=== PATIENT | female | born 1985 ===

== ENCOUNTER 2017-10-09 03:33 | Observation (INO) | payer MEDICAID ==
[2017-10-09 03:46] VITALS: BMI 36.1
[2017-10-09] MEDS ORDERED: Sodium Chloride 0.9% 1,000 ML IV STA (03:46)
--- NOTE | 2017-10-09 04:07 | ED PDOC ---
HPI: Abdomen Time Seen by Provider: 10/09/17 03:41 Chief Complaint (Nursing): Abdominal Pain Chief Complaint (Provider): Abdominal Pain History Per: Patient History/Exam Limitations: no limitations Onset/Duration Of Symptoms: Hrs (x2) Current Symptoms Are (Timing): Still Present Pain Scale Rating Of: 9 Location Of Pain/Discomfort: RUQ, Epigastric Associated Symptoms: Nausea. denies: Fever, Vomiting, Diarrhea, Chest Pain, Urinary Symptoms Additional Complaint(s): Temitope Reeves is a 32 year old female with a past medical history of gallstones and cerebral AV malformation, who is presenting to the ER with complains of right upper quadrant abdominal pain and associated epigastric pain and nausea, onset 2 hours ago. Patient reports that she was diagnosed with gallstones 1 month ago and had a similar episode in the past. Tonight, she states that she ate at a [place] buffet and woke up with acute right upper quadrant pain with an intensity of 9/10. She states that initially she felt mild shortness of breath, but denies chest pain, vomiting, diarrhea, fevers, or urinary symptoms. Patient offers no other medical complaints at this time. PMD: non-H provider Past Medical History Reviewed: Historical Data, Nursing Documentation, Vital Signs Vital Signs: Last Vital Signs Temp 98.4 F 10/09/17 03:46 Pulse 81 10/09/17 03:46 Resp 17 10/09/17 03:46 BP 124/80 10/09/17 03:46 Pulse Ox 100 10/09/17 05:11 - Medical History Other PMH: Gall stones, Cerebral AV Malfunction - Surgical History Surgical History: (x2) Other surgeries: galls stones - Family History Family History: States: Unknown Family Hx - Social History Drugs: Denies - Home Medications Home Medications: Ambulatory Orders Medication Instructions Recorded No Known Home Med 10/09/17 - Allergies Allergies/Adverse Reactions: Allergies Allergy/AdvReac Type Severity Reaction Status Date / Time No Known Allergies Allergy Verified 10/09/17 03:45 Review of Systems ROS Statement: Except As Marked, All Systems Reviewed And Found Negative Constitutional: Negative for: Fever Cardiovascular: Negative for: Chest Pain Respiratory: Positive for: Shortness of Breath Gastrointestinal: Positive for: Nausea, Abdominal Pain (right upper quadrant and epigastric). Negative for: Vomiting, Diarrhea Physical Exam - Reviewed Nursing Documentation Reviewed: Yes Vital Signs Reviewed: Yes - Physical Exam Appears: Positive for: Non-toxic, No Acute Distress Head Exam: Positive for: ATRAUMATIC, NORMAL INSPECTION, NORMOCEPHALIC Skin: Positive for: Normal Color, Warm, Dry Eye Exam: Positive for: EOMI, Normal appearance, PERRL Neck: Positive for: Normal, Painless ROM, Supple Cardiovascular/Chest: Positive for: Regular Rate, Rhythm. Negative for: Murmur Respiratory: Positive for: Normal Breath Sounds. Negative for: Respiratory Distress Gastrointestinal/Abdominal: Positive for: Soft, Tenderness (mild to right upper quadrant and epigastric) Back: Positive for: Normal Inspection. Negative for: L CVA Tenderness, R CVA Tenderness, Vertebral Tenderness Extremity: Positive for: Normal ROM. Negative for: Deformity, Swelling Neurologic/Psych: Positive for: Alert, Oriented. Negative for: Motor/Sensory Deficits - Laboratory Results Result Diagrams: 10/09/17 04:09 10/09/17 04:09 - ECG O2 Sat by Pulse Oximetry: 100 (RA) Pulse Ox Interpretation: Normal Medical Decision Making Medical Decision Making: Time: 3:46 Impression: 32 year old female with right upper quadrant and epigastric pain with setting of [facility] Initial Plan: --CMP --Lipase --Urine --ED Urine Dipstick --CBC --IV Fluids --Pepcid 20 mg IV --Toradol 30 mg IV --Zofran 4 mg PO --Urinalysis --US Gallbladder 5:00 Labs reviewed and showed an elevated Lipase. An additional 2 liters of IV fluids were administered to patient. Upon provider evaluation, and discussion with Dr. Polanco, patient will be admitted and referred to Dr. Polanco for pancreatitis and cholecystitis. 5:[address] Drake, surgical consultant regarding patient, discussed case. Scribe Attestation: Documented by Blessing Perkins, acting as a scribe for Mike Cash MD. Provider Scribe Attestation: All medical record entries made by the Scribe were at my direction and personally dictated by me. I have reviewed the chart and agree that the record accurately reflects my personal performance of the history, physical exam, medical decision making, and the department course for this patient. I have also personally directed, reviewed, and agree with the discharge instructions and disposition. Disposition - Clinical Impression Clinical Impression: Pancreatitis, Cholecystitis - Patient ED Disposition Is Patient to be Admitted: Yes - Disposition Referrals: Yaya Polanco MD [Staff Provider] - Disposition: Transfer of Care Disposition Time: 05:09 Condition: FAIR Forms: [facility] (Croatian)
[2017-10-09 04:24] LABS: BASO # 0.1 K/uL (0.0-0.2); BASO % 0.7 % (0.0-2.0); EOS # 0.1 K/uL (0.0-0.7); EOS % 0.7 % (0.0-4.0); HEMOGLOBIN 10.5 g/dL (12.0-16.0); MEAN CORPUSCULAR HEMOGLOBIN 23.9 pg (27.0-31.0); MEAN CORPUSCULAR HGB CONC 32.3 g/dL (33.0-37.0); MEAN PLATELET VOLUME 8.6 fl (7.2-11.7); MONO # 0.9 K/uL (0.0-0.8); MONO % 6.7 % (0.0-10.0); NEUT # 9.4 K/uL (1.8-7.0); NEUT % 69.9 % (50.0-75.0); RBC 4.38 Mil/uL (3.80-5.20); RED CELL DISTRIBUTION WIDTH 15.9 % (11.5-14.5); WHITE BLOOD COUNT 13.4 K/uL (4.8-10.8)
[2017-10-09 04:33] LABS: ALBUMIN 4.2 g/dL (3.5-5.0); ALT/SGPT 38 U/L (9-52); AST/SGOT 34 U/L (14-36); BLOOD UREA NITROGEN 18 mg/dl (7-17); CALCIUM 9.3 mg/dL (8.4-10.2); GFR AFRICAN-AMERICAN > 60; GFR NON-AFRICAN AMERICAN > 60
[2017-10-09 04:55] LABS: LIPASE 6289 U/L (23-300)
--- NOTE | 2017-10-09 05:08 | US ---
EXAM: US Abdomen Limited, Right Upper Quadrant CLINICAL HISTORY: 32 years old, female; Pain; Abdominal pain; Acute; Additional info: Abd pain TECHNIQUE: Real-time ultrasound of the right upper quadrant with image documentation. COMPARISON: No relevant prior studies available. FINDINGS: Liver: Fatty infiltration. No mass. No intrahepatic ductal dilatation. Gallbladder: Gallstones. No wall thickening. No pericholecystic fluid. No sonographic Steward's sign. Common bile duct: No dilatation. No stones. Pancreas: Unremarkable as visualized. Right kidney: Normal echogenicity. No hydronephrosis. IMPRESSION: 1. Cholelithiasis. 2. Incidental/non-acute findings are described above.
[2017-10-09] MEDS ORDERED: Lactated Ringer's 1,000 ML IV STA ×2 (05:27)
--- NOTE | 2017-10-09 06:06 | CP.PCM.CON ---
History of Present Illness - History of Present Illness History of Present Illness: General Surgery Consult Note for Dr. Mace Reason for consult: Pancreatitis, cholelithiasis 32 year old female with a past medical history of gallstones and cerebral AV malformation presents to [facility] for complaint of epigastric pain and nausea. Patient was seen and evaluated in the ED. Patient states that pain began around 2 am. Patient reports similar episode in the past about 1 month ago. At that time, she was diagnosed with gallstones. Patient reports sudden onset which woke her up from sleep. She states that initially she felt mild shortness of breath before the nausea began. Earlier in the evening, she states that she ate at a [employer]. She rates the pain as severe intensity initially but improved after receiving pain medication. She describes the pain as constant and aching in epigastric region radiating to RUQ. Lying supine exacerbates the pain while position alleviates it. She denies recent illness or sick contact. Admits to chills. Denies fevers, chest pain, palpitations, vomiting, diarrhea, or urinary symptoms. PMD: has primary in [place] PMH: cerebral AV malformation, cholelithiasis Meds: denies Allergy: NKDA PSH: x 2 FH: HTN, DM, Prostate CA Social: denies tobacco/illicit drug use, occasional EtOH Review of Systems - Review of Systems All systems: reviewed and no additional remarkable complaints except (as per HPI ) Past Patient History - Past Social History Drugs: Denies - PSYCHIATRIC Hx Substance Use: No - SURGICAL HISTORY Hx Surgeries: No Meds Allergies/Adverse Reactions: Allergies Allergy/AdvReac Type Severity Reaction Status Date / Time No Known Allergies Allergy Verified 10/09/17 03:45 - Medications Medications: Current Medications Lactated Ringer's (Lactated Ringer's) 1,000 mls @ 1,000 mls/hr IV .Q1H STA Stop: 10/09/17 06:26 Last Admin: 10/09/17 05:51 Dose: 1,000 mls/hr Lactated Ringer's (Lactated Ringer's) 1,000 mls @ 1,000 mls/hr IV .Q1H STA Stop: 10/09/17 06:26 Physical Exam - Constitutional Appears: Well, Non-toxic, No Acute Distress - Head Exam Head Exam: ATRAUMATIC, NORMOCEPHALIC - Eye Exam Eye Exam: EOMI, Normal appearance. absent: Scleral icterus Pupil Exam: PERRL - ENT Exam ENT Exam: Mucous Membranes Moist - Neck Exam Neck exam: Negative for: Tenderness - Respiratory Exam Respiratory Exam: NORMAL BREATHING PATTERN - Cardiovascular Exam Cardiovascular Exam: REGULAR RHYTHM - GI/Abdominal Exam GI & Abdominal Exam: Normal Bowel Sounds, Soft, Tenderness (mild epigastric). absent: Distended, Firm, Guarding, Hernia, Rebound, Rigid - Extremities Exam Extremities exam: Positive for: normal capillary refill, pedal pulses present. Negative for: calf tenderness - Back Exam Back exam: absent: CVA tenderness (L), CVA tenderness (R) - Neurological Exam Neurological exam: Alert, CN II-XII Intact, Oriented x3 - Psychiatric Exam Psychiatric exam: Normal Affect, Normal Mood - Skin Skin Exam: Dry, Intact, Normal Color, Warm Results - Vital Signs Recent Vital Signs: Last Vital Signs Temp 98.4 F 10/09/17 03:46 Pulse 81 10/09/17 03:46 Resp 17 10/09/17 03:46 BP 124/80 10/09/17 03:46 Pulse Ox 100 10/09/17 05:22 - Labs Result Diagrams: 10/09/17 04:09 10/09/17 04:09 Labs: Laboratory Results - last 24 hr 10/09/17 10/09/17 04:09 04:09 WBC 13.4 H RBC 4.38 Hgb 10.5 L Hct 32.4 L MCV 74.0 L MCH 23.9 L MCHC 32.3 L RDW 15.9 H Plt Count 502 H MPV 8.6 Neut % (Auto) 69.9 Lymph % (Auto) 22.0 Sherman % (Auto) 6.7 Eos % (Auto) 0.7 Baso % (Auto) 0.7 Neut # (Auto) 9.4 H Lymph # (Auto) 3.0 Sherman # (Auto) 0.9 H Eos # (Auto) 0.1 Baso # (Auto) 0.1 Sodium 141 Potassium 3.6 Chloride 100 Carbon Dioxide 27 Anion Gap 18 BUN 18 H Creatinine 0.5 L Est GFR ( Amer) > 60 Est GFR (Non-Af Amer) > 60 Random Glucose 105 Calcium 9.3 Total Bilirubin 0.4 AST 34 ALT 38 Alkaline Phosphatase 78 Total Protein 8.3 H Albumin 4.2 Globulin 4.1 H Albumin/Globulin Ratio 1.0 Lipase 6289 H Assessment & Plan - Assessment and Plan (Free Text) Plan: 32 F with epigastric pain likely secondary to pancreatitis and biliary colic -NPO -IV fluids -Analgesics/Anti-emetics PRN -Will discuss with Dr. Rodri Drake PGY1
[2017-10-09 06:11] LABS: SQUAMOUS EPITHIAL 6 /hpf (0-5); URINE BACTERIA OCC (<OCC); URINE BILIRUBIN NEGATIVE (NEGATIVE); URINE BLOOD SMALL (NEGATIVE); URINE CLARITY CLOUDY (Clear); URINE COLOR YELLOW (YELLOW); URINE GLUCOSE (UA) NEG (Normal); URINE LEUKOCYTE ESTERASE TRACE Leu/uL (Negative); URINE PROTEIN 30 mg/dL (NEGATIVE); URINE UROBILINOGEN 0.2-1.0 mg/dL (0.2-1.0)
[2017-10-09] MEDS ORDERED: cefTRIAXone (Rocephin) 1 gm Inj ONE (06:12)
[2017-10-09] MEDS: Lactated Ringer's 1,000 ML IV SCH ×3 (06:32→22:15)
[2017-10-09] MEDS ORDERED: Morphine 4 MG/ML VIAL IVP PRN (06:48)
--- NOTE | 2017-10-09 11:59 | CP.PCM.HP ---
History of Present Illness - History of Present Illness History of Present Illness: 32 yo female with history of Gallstone and AV malformation in the brain came in because of epigastric pain, non-radiating, associated with nausea following eating in a [place] [employer]. Patient was seen at [facility] because of the same and was found to have gallstones. Patient received pain medications in the ER and was started on IV antibiotics. Presently asymptomatic since this morning. Denied fever, chills, dysuria or any urinary symptoms. Present on Admission - Present on Admission Any Indicators Present on Admission: No History of DVT/PE: No History of Uncontrolled Diabetes: No Urinary Catheter: No Decubitus Ulcer Present: No Review of Systems - Review of Systems All systems: reviewed and no additional remarkable complaints except (aside from those mentioned above, 12 point system review were negative by me) Past Patient History - Tetanus Immunizations Tetanus Immunization: Unknown - Past Medical History & Family History Past Medical History?: Yes - Past Social History Smoking Status: Never Smoked Alcohol: Occasional Drugs: Denies Home Situation {Lives}: With Family - CARDIAC Hx Cardiac Disorders: No - PULMONARY Hx Respiratory Disorders: No - NEUROLOGICAL Other/Comment: Cerebral AV Malformation diagnosed in 2012 - HEENT Hx HEENT Problems: No - RENAL Hx Chronic Kidney Disease: No - ENDOCRINE/METABOLIC Hx Endocrine Disorders: No - HEMATOLOGICAL/ONCOLOGICAL Hx Blood Disorders: No - INTEGUMENTARY Hx Dermatological Problems: No - MUSCULOSKELETAL/RHEUMATOLOGICAL Hx Musculoskeletal Disorders: No Hx Falls: No - GASTROINTESTINAL Hx Gastrointestinal Disorders: Yes Hx Gall Bladder Disease: Yes Other/Comment: Gall stones Beb 2018 - GENITOURINARY/GYNECOLOGICAL Hx Genitourinary Disorders: No - PSYCHIATRIC Hx Substance Use: No - SURGICAL HISTORY Hx Surgeries: No - ANESTHESIA Hx Anesthesia: Yes Hx Anesthesia Reactions: No Hx Malignant Hyperthermia: No Has any member of the family had a problem w/ anesthesia?: No Meds Allergies/Adverse Reactions: Allergies Allergy/AdvReac Type Severity Reaction Status Date / Time No Known Allergies Allergy Verified 10/09/17 03:45 Physical Exam - Constitutional Appears: No Acute Distress - Head Exam Head Exam: ATRAUMATIC - Eye Exam Eye Exam: absent: Scleral icterus - ENT Exam ENT Exam: Mucous Membranes Moist - Neck Exam Neck exam: Negative for: Meningismus - Respiratory Exam Respiratory Exam: absent: Rales, Rhonchi, Wheezes, Respiratory Distress - Cardiovascular Exam Cardiovascular Exam: REGULAR RHYTHM, +S1, +S2 - GI/Abdominal Exam GI & Abdominal Exam: Soft. absent: Tenderness - Rectal Exam Rectal Exam: Deferred - Extremities Exam Extremities exam: Negative for: pedal edema - Back Exam Back exam: absent: tenderness - Neurological Exam Neurological exam: Alert, Oriented x3 - Psychiatric Exam Psychiatric exam: Normal Affect - Skin Skin Exam: Dry, Intact Results - Vital Signs Recent Vital Signs: Last Vital Signs Temp 98.3 F 10/09/17 08:04 Pulse 79 10/09/17 08:04 Resp 20 10/09/17 08:04 BP 108/66 10/09/17 08:04 Pulse Ox 99 10/09/17 08:04 - Labs Result Diagrams: 10/09/17 04:09 10/09/17 04:09 Labs: Laboratory Results - last 24 hr 10/09/17 10/09/17 10/09/17 04:09 04:09 04:09 WBC 13.4 H RBC 4.38 Hgb 10.5 L Hct 32.4 L MCV 74.0 L MCH 23.9 L MCHC 32.3 L RDW 15.9 H Plt Count 502 H MPV 8.6 Neut % (Auto) 69.9 Lymph % (Auto) 22.0 Charles % (Auto) 6.7 Eos % (Auto) 0.7 Baso % (Auto) 0.7 Neut # (Auto) 9.4 H Lymph # (Auto) 3.0 Charles # (Auto) 0.9 H Eos # (Auto) 0.1 Baso # (Auto) 0.1 Sodium 141 Potassium 3.6 Chloride 100 Carbon Dioxide 27 Anion Gap 18 BUN 18 H Creatinine 0.5 L Est GFR ( Amer) > 60 Est GFR (Non-Af Amer) > 60 Random Glucose 105 Calcium 9.3 Total Bilirubin 0.4 AST 34 ALT 38 Alkaline Phosphatase 78 Total Protein 8.3 H Albumin 4.2 Globulin 4.1 H Albumin/Globulin Ratio 1.0 Lipase 6289 H Urine Color Yellow Urine Clarity Cloudy Urine pH 7.0 Ur Specific [place] 1.019 Urine Protein 30 Urine Glucose (UA) Neg Urine Ketones Negative Urine Blood Small Urine Nitrate Positive H Urine Bilirubin Negative Urine Urobilinogen 0.2-1.0 Ur Leukocyte Esterase Trace Urine RBC (Auto) 3 Urine Microscopic WBC 5 Ur Squamous Epith Cells 6 H Urine Bacteria Occ H Assessment & Plan - Assessment and Plan (Free Text) Assessment: 32 yo female with history of Gallstone and AV malformation in the brain came in because of epigastric pain, non-radiating, associated with nausea following eating in a [place] [employer]. Patient was seen at [facility] because of the same and was found to have gallstones. Patient received pain medications in the ER and was started on IV antibiotics. Presently asymptomatic since this morning. Denied fever, chills, dysuria or any urinary symptoms. 1. Acute Cholecystitis keep NPO continue IV hydration pain management with Morphine 2mg IV q 4hrs prn continue Rocephin and Flagyl surgical consult with Dr Mace appreciated patient medically cleared for surgery if surgery is warranted 2. UTI urine culture on IV Rocephin 3. Cerebral AV malformation patient is being followed by up by neurosurgery on outpatient basis
[2017-10-09] MEDS: metroNIDAZOLE 500mg/100ml NS 100 ML IVPB SCH ×2 (12:12→17:53)
[2017-10-09] MEDS ORDERED: Sodium Chloride 0.9% 1,000 ML IV SCH (12:30)
[2017-10-09 14:25] LABS: PROTHROMBIN TIME 12.5 Seconds (9.8-13.1)
[2017-10-09 14:26] LABS: INR 1.1 (0.9-1.2); PARTIAL THROMBOPLASTIN TIME 30.6 Seconds (25.6-37.1)
[2017-10-10 00:07] VITALS: O2SAT 99
[2017-10-10] MEDS: metroNIDAZOLE 500mg/100ml NS 100 ML IVPB SCH ×2 (00:43→08:47)
[2017-10-10 06:42] LABS: BASO % 0.5 % (0.0-2.0); EOS # 0.1 K/uL (0.0-0.7); EOS % 1.5 % (0.0-4.0); HEMOGLOBIN 9.3 g/dL (12.0-16.0); LYMPH # 2.8 K/uL (1.0-4.3); LYMPH % 37.6 % (20.0-40.0); MEAN CELL VOLUME 73.7 fl (81.0-99.0); MEAN CORPUSCULAR HEMOGLOBIN 24.3 pg (27.0-31.0); MEAN PLATELET VOLUME 8.2 fl (7.2-11.7); MONO # 0.5 K/uL (0.0-0.8); MONO % 6.9 % (0.0-10.0); NEUT % 53.5 % (50.0-75.0); RBC 3.84 Mil/uL (3.80-5.20); RED CELL DISTRIBUTION WIDTH 15.9 % (11.5-14.5); WHITE BLOOD COUNT 7.5 K/uL (4.8-10.8)
[2017-10-10] MEDS: Lactated Ringer's 1,000 ML IV SCH (07:32)
--- NOTE | 2017-10-10 08:16 | CP.PCM.PN ---
<Gaetano Gomes - Last Filed: 10/10/17 08:13> Subjective - Date & Time of Evaluation Date of Evaluation: 10/10/17 Time of Evaluation: 08:13 - Subjective Subjective: SURGERY NOTE FOR DR. FRANKS 32F seen and examined at bedside. Patient denies further abdominal pain, nausea , vomiting. No further acute events over night. Objective - Vital Signs/Intake and Output Vital Signs (last 24 hours): Temp Pulse Resp BP Pulse Ox 98.0 F 79 19 94/59 L 99 10/10/17 00:00 10/10/17 00:00 10/10/17 00:00 10/10/17 00:00 10/10/17 00:00 - Medications Medications: Current Medications Hydromorphone HCl (Dilaudid) 0.5 mg IVP Q3 PRN PRN Reason: Pain, severe (8-10) Lactated Ringer's (Lactated Ringer's) 1,000 mls @ 125 mls/hr IV .Q8H [facility] Last Admin: 10/10/17 07:32 Dose: 125 mls/hr Metronidazole (Flagyl 500mg/100ml Ns) 100 mls @ 100 mls/hr IVPB Q8 DAVID PRN Reason: Protocol Last Admin: 10/10/17 00:43 Dose: 100 mls/hr Sodium Chloride (Sodium Chloride 0.9%) 1,000 mls @ 100 mls/hr IV .Q10H DAVID Ceftriaxone Sodium 1 gm/ (Dextrose) 100 mls @ 100 mls/hr IVPB DAILY DAVID PRN Reason: Protocol Last Admin: 10/09/17 17:54 Dose: Not Given Ketorolac Tromethamine (Toradol) 15 mg IVP Q6 PRN PRN Reason: Pain, moderate (4-7) Morphine Sulfate (Morphine) 2 mg IVP Q4 PRN PRN Reason: Pain, severe (8-10) Morphine Sulfate (Morphine) 2 mg IVP Q4 PRN PRN Reason: Pain, moderate (4-7) Ondansetron HCl (Zofran Inj) 4 mg IVP Q6 PRN PRN Reason: Nausea/Vomiting Pantoprazole Sodium (Protonix Inj) 40 mg IVP DAILY [facility] Last Admin: 10/09/17 09:12 Dose: 40 mg - Labs Labs: 10/10/17 06:20 10/09/17 04:09 PT 12.5 Seconds (9.8-13.1) 10/09/17 13:05 INR 1.1 (0.9-1.2) 10/09/17 13:05 APTT 30.6 Seconds (25.6-37.1) 10/09/17 13:05 - Constitutional Appears: Well, Non-toxic, No Acute Distress - Respiratory Exam Respiratory Exam: Clear to Ausculation Bilateral, NORMAL BREATHING PATTERN - Cardiovascular Exam Cardiovascular Exam: REGULAR RHYTHM, +S1, +S2 - GI/Abdominal Exam GI & Abdominal Exam: Soft. absent: Distended, Firm, Guarding, Rigid, Tenderness , Rebound - Neurological Exam Neurological Exam: Alert, Awake Assessment and Plan - Assessment and Plan (Free Text) Assessment: 32F with pancreatitis likely 2/2 gallstone Plan: - Continue IVF - Serial abdominal exams - monitor labs - may need MRCP Further recs discuss with Dr. Rodri Gomes, PGY2 <Greg Sumner - Last Filed: 10/10/17 13:23> Subjective - Date & Time of Evaluation Time of Evaluation: 12:15 - Subjective Subjective: Patient was seen and examined at the bedside. Agree with resident's note above. Objective - Vital Signs/Intake and Output Vital Signs (last 24 hours): Temp Pulse Resp BP Pulse Ox 98.6 F 76 20 95/54 L 99 10/10/17 08:22 10/10/17 08:22 10/10/17 08:22 10/10/17 08:22 10/10/17 08:22 - Medications Medications: Current Medications Docusate Sodium (Colace) 100 mg PO DAILY [facility] Last Admin: 10/10/17 08:51 Dose: 100 mg Hydromorphone HCl (Dilaudid) 0.5 mg IVP Q3 PRN PRN Reason: Pain, severe (8-10) Lactated Ringer's (Lactated Ringer's) 1,000 mls @ 125 mls/hr IV .Q8H [facility] Last Admin: 10/10/17 07:32 Dose: 125 mls/hr Metronidazole (Flagyl 500mg/100ml Ns) 100 mls @ 100 mls/hr IVPB Q8 [facility] PRN Reason: Protocol Last Admin: 10/10/17 08:47 Dose: 100 mls/hr Sodium Chloride (Sodium Chloride 0.9%) 1,000 mls @ 100 mls/hr IV .Q10H DAVID Ceftriaxone Sodium 1 gm/ (Dextrose) 100 mls @ 100 mls/hr IVPB DAILY DAVID PRN Reason: Protocol Last Admin: 10/10/17 10:09 Dose: 100 mls/hr Ketorolac Tromethamine (Toradol) 15 mg IVP Q6 PRN PRN Reason: Pain, moderate (4-7) Morphine Sulfate (Morphine) 2 mg IVP Q4 PRN PRN Reason: Pain, severe (8-10) Morphine Sulfate (Morphine) 2 mg IVP Q4 PRN PRN Reason: Pain, moderate (4-7) Ondansetron HCl (Zofran Inj) 4 mg IVP Q6 PRN PRN Reason: Nausea/Vomiting Pantoprazole Sodium (Protonix Inj) 40 mg IVP DAILY [facility] Last Admin: 10/10/17 08:49 Dose: 40 mg - Labs Labs: 10/10/17 06:20 10/09/17 04:09 PT 12.5 Seconds (9.8-13.1) 10/09/17 13:05 INR 1.1 (0.9-1.2) 10/09/17 13:05 APTT 30.6 Seconds (25.6-37.1) 10/09/17 13:05 Assessment and Plan - Assessment and Plan (Free Text) Plan: - Patient is asymptomatic and wants to go home and get cholecystectomy on the elective bases - Will schedule for elective cholecystectomy - Clear for discharge if tolerates regular diet
[2017-10-10 08:23] VITALS: BP 95/54; PULSE 76; RESP 20; TEMP 98.6
--- NOTE | 2017-10-10 15:29 | CP.PCM.DIS ---
Provider - Provider Date of Admission: 10/09/17 05:00 Attending physician: Jordin Barron MD Primary care physician: Daniel Mack Consults: Dr. Jovi Mace Time Spent in preparation of Discharge (in minutes): 25 Hospital Course - Lab Results Lab Results: Micro Results 10/09/17 12:10 Blood-Venous Blood Culture - Preliminary NO GROWTH AFTER 24 HOURS 10/09/17 12:10 Blood-Venous Blood Culture - Preliminary NO GROWTH AFTER 24 HOURS 10/09/17 08:00 Urine Urine Culture - Preliminary Gram Negative Edouard Most Recent Lab Values WBC 7.5 K/uL (4.8-10.8) 10/10/17 06:20 RBC 3.84 Mil/uL (3.80-5.20) 10/10/17 06:20 Hgb 9.3 g/dL (12.0-16.0) L 10/10/17 06:20 Hct 28.3 % (34.0-47.0) L 10/10/17 06:20 MCV 73.7 fl (81.0-99.0) L 10/10/17 06:20 MCH 24.3 pg (27.0-31.0) L 10/10/17 06:20 MCHC 33.0 g/dL (33.0-37.0) 10/10/17 06:20 RDW 15.9 % (11.5-14.5) H 10/10/17 06:20 Plt Count 431 K/uL (130-400) H 10/10/17 06:20 MPV 8.2 fl (7.2-11.7) 10/10/17 06:20 Neut % (Auto) 53.5 % (50.0-75.0) 10/10/17 06:20 Lymph % (Auto) 37.6 % (20.0-40.0) 10/10/17 06:20 Franklin % (Auto) 6.9 % (0.0-10.0) 10/10/17 06:20 Eos % (Auto) 1.5 % (0.0-4.0) 10/10/17 06:20 Baso % (Auto) 0.5 % (0.0-2.0) 10/10/17 06:20 Neut # (Auto) 4.0 K/uL (1.8-7.0) 10/10/17 06:20 Lymph # (Auto) 2.8 K/uL (1.0-4.3) 10/10/17 06:20 Franklin # (Auto) 0.5 K/uL (0.0-0.8) 10/10/17 06:20 Eos # (Auto) 0.1 K/uL (0.0-0.7) 10/10/17 06:20 Baso # (Auto) 0.0 K/uL (0.0-0.2) 10/10/17 06:20 PT 12.5 Seconds (9.8-13.1) 10/09/17 13:05 INR 1.1 (0.9-1.2) 10/09/17 13:05 APTT 30.6 Seconds (25.6-37.1) 10/09/17 13:05 Sodium 141 mmol/l (132-148) 10/09/17 04:09 Potassium 3.6 MMOL/L (3.6-5.0) 10/09/17 04:09 Chloride 100 mmol/L (98-107) 10/09/17 04:09 Carbon Dioxide 27 mmol/L (22-30) 10/09/17 04:09 Anion Gap 18 (10-20) 10/09/17 04:09 BUN 18 mg/dl (7-17) H 10/09/17 04:09 Creatinine 0.5 mg/dl (0.7-1.2) L 10/09/17 04:09 Est GFR ( Amer) > 60 10/09/17 04:09 Est GFR (Non-Af Amer) > 60 10/09/17 04:09 Random Glucose 105 mg/dL (65-105) 10/09/17 04:09 Calcium 9.3 mg/dL (8.4-10.2) 10/09/17 04:09 Total Bilirubin 0.4 mg/dl (0.2-1.3) 10/09/17 04:09 AST 34 U/L (14-36) 10/09/17 04:09 ALT 38 U/L (9-52) 10/09/17 04:09 Alkaline Phosphatase 78 U/L (38-126) 10/09/17 04:09 Total Protein 8.3 G/DL (6.3-8.2) H 10/09/17 04:09 Albumin 4.2 g/dL (3.5-5.0) 10/09/17 04:09 Globulin 4.1 gm/dL (2.2-3.9) H 10/09/17 04:09 Albumin/Globulin Ratio 1.0 (1.0-2.1) 10/09/17 04:09 Lipase 206 U/L (23-300) 10/10/17 06:20 Urine Color Yellow (YELLOW) 10/09/17 04:09 Urine Clarity Cloudy (Clear) 10/09/17 04:09 Urine pH 7.0 (5.0-8.0) 10/09/17 04:09 Ur Specific Sidney 1.019 (1.003-1.030) 10/09/17 04:09 Urine Protein 30 mg/dL (NEGATIVE) 10/09/17 04:09 Urine Glucose (UA) Neg mg/dL (Normal) 10/09/17 04:09 Urine Ketones Negative mg/dL (NEGATIVE) 10/09/17 04:09 Urine Blood Small (NEGATIVE) 10/09/17 04:09 Urine Nitrate Positive (NEGATIVE) H 10/09/17 04:09 Urine Bilirubin Negative (NEGATIVE) 10/09/17 04:09 Urine Urobilinogen 0.2-1.0 mg/dL (0.2-1.0) 10/09/17 04:09 Ur Leukocyte Esterase Trace Kayli/uL (Negative) 10/09/17 04:09 Urine RBC (Auto) 3 /hpf (0-3) 10/09/17 04:09 Urine Microscopic WBC 5 /hpf (0-5) 10/09/17 04:09 Ur Squamous Epith Cells 6 /hpf (0-5) H 10/09/17 04:09 Urine Bacteria Occ (<OCC) H 10/09/17 04:09 - Hospital Course Hospital Course: This is a 32 year old female with pmh of cholelithiasis diagnosed about 1 week ago at [facility], with hx of AV malformation of the brain, who presents to the ED on 10/09/2017 with the complaint of nausea, vomiting, and abdominal pain after eating at [employer]. The patient underwent an abdominal ultrasound which showed cholelithiasis with no other acute findings. Labwork revealed mild leukocytosis at 13.4 and lipase of 6289. The patient was then admitted for further workup. Today, the patient feels much better. She is able to tolerate regular diet and has no nausea or abdominal pain. Lipase has precipitously fallen to normal level of 206 and leukocytosis has also resolved, indicating likely she passed a stone. The patient is therefore being discharged today in stable condition. She is to follow up with Dr. Jovi Mace who was consulted on the patient, as she will likely need cholecystectomy in the near future due to recurrent bouts of cholecystitis and abdominal pain. PMD: Daniel Mack 1. Acute Cholecystitis- resolved (likely passed retained stone with precipitous drop in her lipase and resolution of her abdominal pain) Tolerating regular diet surgical consult with Dr Mace appreciated- patient to follow up as outpatient 2. UTI urine culture on IV Rocephin as inpatient Being discharged with PO cipro x 5 days 3. Cerebral AV malformation patient is being followed by up by neurosurgery on outpatient basis Discharge Exam - Head Exam Head Exam: ATRAUMATIC - Additional Findings Additional findings: Physical exam: Constitutional- cooperative, awake, alert Head- NCAT, PERRL Eye- PERRL, EOMI ENT- normal exam, MMM. Neck- normal inspection, supple, no JVD Respiratory- CTAB, no wheezes rales rhonchi Cardiovascular- RRR, +S1, +S2 no MRG GI/Abdominal- normal bowel sounds, soft, no mass, no hsm Skin- warm, dry Extremities Exam- normal capillary refill, normal inspection Neurological Exam- alert, awake, oriented Psych- normal mood, normal affect Discharge Plan - Discharge Medications Prescriptions: Ciprofloxacin [Cipro] 500 mg PO Q12H #10 tab Docusate [Colace] 100 mg PO BID PRN #30 cap PRN Reason: Constipation - Follow Up Plan Condition: FAIR Disposition: HOME/ ROUTINE Instructions: Pancreatitis (DC), Gallstones (DC), Cholecystitis (DC), Cholecystitis (GEN), Pancreatitis (DC) Referrals: Jovi Mace MD [Staff Provider] -
== END 2017-10-10 17:59 | disposition home or self-care (01) ==
LOC: H.ER 03:33 → H.ERHOLD 05:00 → INTOOBSV 05:00 → H.MEDSURG1 06:15
DX: K80.00 Calculus of gallbladder with acute cholecystitis without obstruction (principal); N39.0 Urinary tract infection, site not specified; Q28.2 Arteriovenous malformation of cerebral vessels
CPT/HCPCS: 36415; 76705; 80053; 81003; 81025; 83690; 85025; 85610; 85730; 87040; 87086; 99283; C9113; G0378; J0696; J1885; J7040; J7120